=== PATIENT | female | born 2000 | race Native Hawaiian/Other Pacific Islander ===

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

== ENCOUNTER 2020-04-27 10:32 | Emergency (ER) | payer MEDICAID ==
--- NOTE | 2020-04-27 11:17 | Emergency Department Report ---
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 She is currently on her menstrual cycle. She states that her menstrual cycle began on 04/14/2020. She states that she has very irregular cycles. She states that she just had her Nexplanon implant removed from her arm by my POWERHOUSE HELPER on Sunday04/24/2020. She denies any abdominal pain, heavy bleeding, passing clots, fever, nausea, vomiting, diarrhea, fatigue, dizziness, SOB. She states that she having normal bowel movements. No past medical history. No allergies medications. - Related Data Previous Rx's Medication Instructions Recorded Last Taken Type Vit-Fe Fumar-FA [ 1 tab PO QDAY #30 tablet 12/29/18 Unknown Rx Vitamin] Allergies Allergy/AdvReac Type Severity Reaction Status Date / Time No Known Allergies Allergy Unverified 12/28/18 18:56 ED Review of Systems ROS: Stated complaint: SWOLLEN BODY PART Other details as noted in HPI Comment: All other systems reviewed and negative ED Past Medical Hx - Past Medical History Previous Medical History?: No - Surgical History Past Surgical History?: No - Social History Smoking Status: Never Smoker Substance Use Type: None - Medications Home Medications: Home Medications Medication Instructions Recorded Confirmed Last Taken Type Vit-Fe Fumar-FA [ 1 tab PO QDAY #30 tablet 12/29/18 Unknown Rx Vitamin] ED Physical Exam - General Limitations: No Limitations General appearance: alert, in no apparent distress - Head Head exam: Present: atraumatic, normocephalic - Eye Eye exam: Present: normal appearance - ENT ENT exam: Present: mucous membranes moist - Respiratory Respiratory exam: Present: normal lung sounds bilaterally. Absent: respiratory distress, wheezes, rales, rhonchi, stridor, chest wall tenderness, accessory muscle use, decreased breath sounds, prolonged expiratory - Cardiovascular Cardiovascular Exam: Present: regular rate, normal rhythm, normal heart sounds. Absent: systolic murmur, diastolic murmur, rubs, gallop - GI/Abdominal GI/Abdominal exam: Present: soft, distended (mild suprapubic), normal bowel sounds. Absent: tenderness, guarding, rebound, rigid - Neurological Exam Neurological exam: Present: alert, oriented X3 - Psychiatric Psychiatric exam: Present: normal affect, normal mood - Skin Skin exam: Present: warm, dry, intact ED Course Vital Signs 04/27/20 04/27/20 10:37 11:52 Temperature 98.2 F Pulse Rate 102 H 75 Respiratory 16 16 Rate Blood Pressure 137/81 Blood Pressure 132/74 [Right] O2 Sat by Pulse 100 99 Oximetry ED Medical Decision Making - Lab Data Vital Signs 04/27/20 04/27/20 10:37 11:52 Temperature 98.2 F Pulse Rate 102 H 75 Respiratory 16 16 Rate Blood Pressure 137/81 Blood Pressure 132/74 [Right] O2 Sat by Pulse 100 99 Oximetry - Medical Decision Making Patient is a 20-year-old female presents emergency room complaints of lower abdominal bloating that began a couple days ago. She is currently on her menstrual cycle. She states that her menstrual cycle began on 04/14/2020. She states that she has very irregular cycles. She states that she just had her Nexplanon implant removed from her arm by my POWERHOUSE HELPER on Sunday04/24/2020. She denies any abdominal pain, heavy bleeding, passing clots, fever, nausea, vomiting, diarrhea, fatigue, dizziness, SOB. She states that she having normal bowel movements. No past medical history. No allergies medications. Initial triage vitals with very mild tachycardia which improved to normal upon repeat. She has no abdominal tenderness on exam, no guarding, no rebound, no rigidity, normal bowel sounds, no peritoneal signs, she has a small amount of bloating present to the suprapubic region. Symptoms likely related to bloating secondary from menstruation. Advised patient to follow-up with POWERHOUSE HELPER. Advised patient May take Midol [id number]. Follow-up with your POWERHOUSE HELPER. Return to emergency room for new or worsening symptoms. Critical care attestation.: If time is entered above; I have spent that time in minutes in the direct care of this critically ill patient, excluding procedure time. ED Disposition Clinical Impression: Abdominal bloating associated with menstruation Disposition: TO HOME OR SELFCARE Is pt being admited?: No Does the pt Need Aspirin: No Condition: Stable Instructions: Abdominal Bloating, Abdominal Pain (ED) Additional Instructions: May take Midol [id number]. Follow-up with your POWERHOUSE HELPER. Return to emergency room for new or worsening symptoms. Referrals: [facility] [Provider Group] - 2-3 Days Time of Disposition: 11:16 Print Language: [place]
[2020-04-27 11:52] VITALS: BP 132/74
== END 2020-04-27 11:52 | disposition home or self-care (01) ==
LOC: ED 10:32
DX: R14.0 Abdominal distension (gaseous) (principal); Z79.899 Other long term (current) drug therapy
CPT/HCPCS: 99281